=== PATIENT | male | born 1945 | race Hispanic/Latino ===

== ENCOUNTER 2021-01-20 09:00 | Observation (INO) | payer OTHER ==
[~2021-01-20] VITALS: Ht 175.3 cm; Wt 74.8 kg
[2021-01-20 10:49] LABS: BASOPHILS % (AUTO) 0.9 % (0.0-5.0); EOSINOPHILS % (AUTO) 12.7 % (0.0-8.0); HEMATOCRIT 38.7 % (42-54); LYMPHOCYTES % (AUTO) 14.9 % (21.0-51.0); MEAN CORPUSCULAR HEMOGLOBIN 28.1 pg (27.0-33.0); MEAN CORPUSCULAR HGB CONC 30.7 g/dL (32.0-36.0); MEAN CORPUSCULAR VOLUME 91.3 fL (79-99); MONOCYTES % (AUTO) 8.1 % (3.0-13.0); PLATELET COUNT (AUTO) 232 K/uL (130-400); RED BLOOD CELL COUNT(AUTO) 4.24 MIL/uL (4.50-6.20); RED CELL DISTRIBUTION WIDTH 13.5 % (11.0-15.5); WHITE BLOOD COUNT (AUTO) 8.4 K/uL (4.8-10.8)
[2021-01-20 10:57] LABS: CREATININE 0.7 mg/dL (0.5-1.5)
[2021-01-20 10:59] LABS: INR 1.05 (0.85-1.15); PROTHROMBIN TIME 11.4 SEC (9.6-11.6)
[2021-01-24 11:33] VITALS: BP 131/74
[2021-01-24] MEDS ORDERED: ESCI-8 PO (12:35)
[2021-01-24] MEDS ORDERED: OMEP40CA13 PO (12:35)
[2021-01-24] MEDS ORDERED: CYCL10TA7 PO (12:35)
[2021-01-24] MEDS ORDERED: BENZ-70 PO (12:35)
[2021-01-24] MEDS ORDERED: FLUT1AER IH (12:35)
[2021-01-24] MEDS ORDERED: FLUT16H NASAL (12:35)
[2021-01-24] MEDS ORDERED: ASPI-1197 PO (12:35)
[2021-01-24] MEDS ORDERED: FURO20TA4 PO (12:35)
[2021-01-24] MEDS ORDERED: CETI10TA57 PO (12:35)
[2021-01-24] MEDS ORDERED: SULF500T8 PO (12:35)
[2021-01-24] MEDS ORDERED: METO-408 PO (12:35)
[2021-01-24] MEDS ORDERED: MONT10TA32 PO (12:35)
[2021-01-24] MEDS ORDERED: TRAM50TA4 PO (12:35)
[2021-01-24] MEDS ORDERED: ALBU2.5V2 IH (12:35)
[2021-01-25] VITALS (22 sets, daily range): BP systolic 96–138; BP diastolic 48–77
[2021-01-25] MEDS: CLINDAMYCIN 900 MG/D5% WATER 50 ML IV SCH ×2 (06:00→13:05)
[2021-01-25] MEDS ORDERED: LACTATED RINGERS 1000ML 1,000 ML IV ONE (09:04)
[2021-01-25] MEDS: VANCOMYCIN 1.5 GM in SODIUM CHLORIDE 0.9% 250 ML IV SCH ×2 (09:15→12:10)
[2021-01-25] MEDS ORDERED: CELECOXIB 200 MG CAP ONE (11:11)
[2021-01-25] MEDS ORDERED: KETOROLAC 15MG/ML VIAL (15MG/ML) ONE (11:11)
[2021-01-25] MEDS ORDERED: ACETAMINOPHEN 500 MG TABLET ONE (11:11)
[2021-01-25] MEDS ORDERED: ROCURONIUM 10MG/1ML SYR 10 MG/ML ML ONE (12:13)
[2021-01-25] MEDS ORDERED: LIDOCAINE PF 100MG/5ML (2%) SYRINGE 5ML ONE (12:13)
[2021-01-25] MEDS ORDERED: PROPOFOL 10 MG/ML 20ML VIAL IV ONE (12:13)
[2021-01-25] MEDS ORDERED: SUCCINYLCHOLINE CHLORIDE 20 MG/ML 10 ML VIAL ONE (12:13)
[2021-01-25] MEDS ORDERED: KETAMINE 50MG/ML SYRINGE 50 MG/ML DISP.SYRIN IV ONE (12:14)
[2021-01-25] MEDS ORDERED: CEFAZOLIN SODIUM 1 GM VIAL ONE (12:17)
[2021-01-25] MEDS ORDERED: TRANEXAMIC ACID 1000MG/10ML ONE ×2 (12:28→15:55)
[2021-01-25] MEDS ORDERED: NEOSTIGMINE 5MG/5ML SYR IV ONE (15:07)
[2021-01-25] MEDS ORDERED: GLYCOPYRROLATE 1 MG/5 ML SYRINGE ONE (15:07)
[2021-01-25] MEDS ORDERED: ONDANSETRON HCL 4 MG/2 ML VIAL ONE (15:07)
[2021-01-25] MEDS ORDERED: POTASSIUM CHLORIDE 20 MEQ ERTAB PO PRN (15:15)
[2021-01-25] MEDS ORDERED: TEMAZEPAM 15 MG CAPSULE PO PRN (15:15)
[2021-01-25] MEDS ORDERED: POTASSIUM CHLORIDE 10% ELIXIR 20 MEQ/15 ML UDCUP PO PRN (15:15)
[2021-01-25] MEDS: SODIUM CHLORIDE 0.9% 1000ML 1,000 ML IV SCH ×2 (15:15→20:30)
[2021-01-25] MEDS ORDERED: FERROUS FUMARATE 324 MG TABLET PO PRN (15:15)
[2021-01-25] MEDS: ACETAMINOPHEN 500 MG TABLET PO SCH ×2 (15:15→20:30)
[2021-01-25] MEDS ORDERED: ONDANSETRON HCL 4 MG/2 ML VIAL IVP PRN (15:15)
[2021-01-25] MEDS ORDERED: OXYCODONE HCL 5 MG TAB PO PRN (15:15)
[2021-01-25] MEDS ORDERED: LIDOCAINE HCL-MPF 1% 2ML VIAL IV PRN (15:15)
[2021-01-25] MEDS ORDERED: POTASSIUM CHLORIDE 20MEQ/100ML 100 ML IV PRN (15:15)
[2021-01-25] MEDS ORDERED: KETOROLAC 15MG/ML VIAL (15MG/ML) IV PRN (15:15)
[2021-01-25] MEDS ORDERED: DiphenhydrAMINE HCL 50 MG/ML VIAL IVP PRN (15:15)
[2021-01-25] MEDS ORDERED: TRAMADOL HCL 50 MG TABLET PO PRN ×3 (15:15→21:15)
[2021-01-25] MEDS ORDERED: MEPERIDINE-PF 25 MG/ML SYG ONE (16:04)
[2021-01-25] MEDS ORDERED: SCOPOLAMINE HYDROBROMIDE 1 EACH ADH..PATCH TD ONE (16:15)
[2021-01-25] MEDS: CLINDAMYCIN 900 MG/D5% WATER 50 ML IVPB SCH (20:28)
[2021-01-25] MEDS: ASPIRIN 81MG TAB.CHEW PO SCH (20:29)
[2021-01-25] MEDS: VANCOMYCIN 1GM+NS 250ML 250 ML IV SCH (20:29)
[2021-01-25] MEDS: PREGABALIN 25 MG CAP PO SCH (20:30)
[2021-01-25] MEDS: CELECOXIB 200 MG CAP PO SCH (20:30)
[2021-01-25] MEDS: MONTELUKAST SODIUM 10 MG TAB PO SCH (20:40)
[2021-01-25] MEDS: CETIRIZINE HCL 5 MG TABLET PO SCH (20:40)
[2021-01-25] MEDS: CYCLOBENZAPRINE HCL 10 MG TABLET PO SCH (20:41)
[2021-01-25] MEDS: OXYCODONE HCL 5 MG TAB PO PRN (20:41)
[2021-01-25] MEDS: BENZONATATE 100 MG CAPSULE PO SCH (20:41)
[2021-01-25] MEDS: CITALOPRAM 20 MG TABLET PO SCH (20:42)
[2021-01-25] MEDS: FUROSEMIDE 20 MG TABLET PO SCH (21:00)
[2021-01-25] MEDS: ALBUTEROL SULFATE 0.083% 2.5 MG/3 ML INH IH SCH (21:11)
[2021-01-26 03:36] LABS: HEMATOCRIT 26.8 % (42-54); MEAN CORPUSCULAR HEMOGLOBIN 28.7 pg (27.0-33.0); MEAN CORPUSCULAR HGB CONC 31.7 g/dL (32.0-36.0); MEAN CORPUSCULAR VOLUME 90.5 fL (79-99); RED BLOOD CELL COUNT(AUTO) 2.96 MIL/uL (4.50-6.20); RED CELL DISTRIBUTION WIDTH 13.4 % (11.0-15.5); WHITE BLOOD COUNT (AUTO) 8.6 K/uL (4.8-10.8)
[2021-01-26 03:45] LABS: CREATININE 0.8 mg/dL (0.5-1.5); POTASSIUM 4.3 mmol/L (3.5-5.1)
[2021-01-26] MEDS: CLINDAMYCIN 900 MG/D5% WATER 50 ML IVPB SCH (03:52)
[2021-01-26] MEDS: OXYCODONE HCL 5 MG TAB PO PRN ×2 (04:00→20:17)
[2021-01-26 04:11] VITALS: BP 103/61
[2021-01-26] MEDS: ACETAMINOPHEN 500 MG TABLET PO SCH ×3 (06:06→23:24)
[2021-01-26] MEDS: ALBUTEROL SULFATE 0.083% 2.5 MG/3 ML INH IH SCH ×3 (06:18→21:25)
[2021-01-26] MEDS: ASPIRIN 81MG TAB.CHEW PO SCH ×3 (07:43→20:16)
[2021-01-26] MEDS: FUROSEMIDE 20 MG TABLET PO SCH ×2 (08:05→16:25)
[2021-01-26] MEDS: BENZONATATE 100 MG CAPSULE PO SCH ×3 (08:05→20:17)
[2021-01-26] MEDS: VANCOMYCIN 1GM+NS 250ML 250 ML IV SCH (08:05)
[2021-01-26] MEDS: CALCIUM CARBONATE 500 MG TABLET PO PRN ×2 (08:05→20:16)
[2021-01-26] MEDS: POLYETHYLENE GLYCOL 3350 17 GM POWD.PACK PO SCH (08:05)
[2021-01-26] MEDS: CELECOXIB 200 MG CAP PO SCH ×2 (08:05→20:16)
[2021-01-26] MEDS: SULFASALAZINE 500 MG TAB.DR PO SCH ×2 (08:05→20:17)
[2021-01-26] MEDS: PREGABALIN 25 MG CAP PO SCH ×2 (08:06→20:16)
[2021-01-26] MEDS: TAMSULOSIN HCL 0.4 MG CAP.ER.24H PO SCH (08:06)
[2021-01-26] MEDS: PANTOPRAZOLE SODIUM 40 MG TABLET.DR PO SCH (08:06)
[2021-01-26] MEDS: FLUTICASONE/VILANTEROL 1 EACH AER.POW.BA IH SCH (08:31)
[2021-01-26] MEDS: FLUTICASONE PROPIONATE 50MCG/SPRAY 16 GM BOTTLE EN SCH (08:31)
[2021-01-26] MEDS: METOPROLOL SUCCINATE 12.5 MG PO SCH (08:31)
[2021-01-26] MEDS: CYCLOBENZAPRINE HCL 10 MG TABLET PO SCH ×2 (08:31→20:17)
[2021-01-26 08:41] VITALS: BP 112/62
[2021-01-26] MEDS: SODIUM CHLORIDE 0.9% 1000ML 1,000 ML IV SCH (11:15)
[2021-01-26 11:26] VITALS: BP 107/53
[2021-01-26 16:27] VITALS: BP 105/60
[2021-01-26 19:51] VITALS: BP 108/59
[2021-01-26] MEDS: CETIRIZINE HCL 5 MG TABLET PO SCH (20:17)
[2021-01-26] MEDS: MONTELUKAST SODIUM 10 MG TAB PO SCH (20:17)
[2021-01-26] MEDS: CITALOPRAM 20 MG TABLET PO SCH (20:17)
[2021-01-26 23:38] VITALS: BP 104/50
[2021-01-27 04:36] VITALS: BP 105/53
[2021-01-27] MEDS: ACETAMINOPHEN 500 MG TABLET PO SCH ×2 (06:03→17:52)
[2021-01-27] MEDS: ALBUTEROL SULFATE 0.083% 2.5 MG/3 ML INH IH SCH ×3 (06:24→19:54)
[2021-01-27 08:00] VITALS: BP 110/82
[2021-01-27] MEDS: OXYCODONE HCL 5 MG TAB PO PRN ×2 (08:04→12:18)
[2021-01-27] MEDS: ASPIRIN 81MG TAB.CHEW PO SCH ×3 (09:00→19:53)
[2021-01-27] MEDS: METOPROLOL SUCCINATE 12.5 MG PO SCH (09:00)
[2021-01-27] MEDS: FLUTICASONE PROPIONATE 50MCG/SPRAY 16 GM BOTTLE EN SCH (09:00)
[2021-01-27] MEDS: FLUTICASONE/VILANTEROL 1 EACH AER.POW.BA IH SCH (09:00)
[2021-01-27] MEDS: TAMSULOSIN HCL 0.4 MG CAP.ER.24H PO SCH (10:13)
[2021-01-27] MEDS: POLYETHYLENE GLYCOL 3350 17 GM POWD.PACK PO SCH (10:13)
[2021-01-27] MEDS: PREGABALIN 25 MG CAP PO SCH ×2 (10:13→19:53)
[2021-01-27] MEDS: BENZONATATE 100 MG CAPSULE PO SCH ×3 (10:13→19:54)
[2021-01-27] MEDS: SULFASALAZINE 500 MG TAB.DR PO SCH ×2 (10:13→19:53)
[2021-01-27] MEDS: CYCLOBENZAPRINE HCL 10 MG TABLET PO SCH ×2 (10:13→19:53)
[2021-01-27] MEDS: PANTOPRAZOLE SODIUM 40 MG TABLET.DR PO SCH (10:13)
[2021-01-27] MEDS: CELECOXIB 200 MG CAP PO SCH ×2 (10:14→19:53)
[2021-01-27] MEDS: FUROSEMIDE 20 MG TABLET PO SCH ×2 (10:14→17:51)
[2021-01-27 11:51] VITALS: BP 119/67
[2021-01-27 16:00] VITALS: BP 124/62
[2021-01-27] MEDS ORDERED: ASPI-1005 PO (17:26)
[2021-01-27] MEDS ORDERED: FERR324T10 PO (17:26)
[2021-01-27] MEDS ORDERED: HYDR-4060 PO (17:26)
[2021-01-27] MEDS: MONTELUKAST SODIUM 10 MG TAB PO SCH (19:53)
[2021-01-27] MEDS: CITALOPRAM 20 MG TABLET PO SCH (19:53)
[2021-01-27] MEDS: CETIRIZINE HCL 5 MG TABLET PO SCH (19:53)
[2021-01-28] MEDS ORDERED: BISACODYL 10 MG SUPP.RECT RC PRN (15:15)
== END 2021-01-27 20:13 | disposition home or self-care (01) ==
LOC: EDSTATUS 09:00 → EDSEX 09:00 → DAHIP 01-25 08:23 → 4AH 01-25 17:27
PROVIDERS: ADMIT Orthopaedic Surgery; ATTEND Orthopaedic Surgery
DX: M17.12 Unilateral primary osteoarthritis, left knee (principal); Z20.822 Contact with and (suspected) exposure to COVID-19; M24.562 Contracture, left knee; D62 Acute posthemorrhagic anemia; E78.5 Hyperlipidemia, unspecified; M06.9 Rheumatoid arthritis, unspecified; Z99.3 Dependence on wheelchair; Z79.899 Other long term (current) drug therapy; Z88.0 Allergy status to penicillin
CPT/HCPCS: 27447; 36415 ×2; 80048 ×2; 82948; 85025; 85027; 85610; 87641; 88305; 88311; 93005; 94640 ×5; 94664; 96365; 96366 ×2; 96368; 96375; 97039 ×4; 97116 ×4; 97161; 97530 ×4; A4215; A4221; A4222; A4223; A4600; A4649 ×4; A4663; A4930 ×2; A5120; A9272; C1776; G0378 ×51; G8978; G8979; G8980; G8981; G8982; G8983; J0330; J0690; J1885 ×2; J2001; J2175; J2405; J2704; J2710; J3370 ×3; J3490 ×8; J7050; J7120 ×2; U0003; 96374

== ENCOUNTER 2021-06-14 05:59 | Inpatient (IN) | payer OTHER ==
[2021-06-05 10:01] LABS: EOSINOPHILS % (AUTO) 10.3 % (0.0-8.0); LYMPHOCYTES % (AUTO) 15.5 % (21.0-51.0); MEAN CORPUSCULAR HEMOGLOBIN 27.3 pg (27.0-33.0); MEAN CORPUSCULAR VOLUME 90.9 fL (79-99); MONOCYTES % (AUTO) 8.8 % (3.0-13.0); PLATELET COUNT (AUTO) 216 K/uL (130-400); RED BLOOD CELL COUNT(AUTO) 4.29 MIL/uL (4.50-6.20); RED CELL DISTRIBUTION WIDTH 15.8 % (11.0-15.5); WHITE BLOOD COUNT (AUTO) 7.2 K/uL (4.8-10.8)
[2021-06-05 10:09] LABS: CREATININE 0.8 mg/dL (0.5-1.5); POTASSIUM 4.1 mmol/L (3.5-5.1)
[2021-06-05 10:12] LABS: APPEARANCE,URINE Clear (CLEAR); BILIRUBIN,URINE Negative (NEGATIVE); COLOR,URINE Yellow (YELLOW); GLUCOSE, URINE (UA) Negative (NEGATIVE); KETONES,URINE Negative (NEGATIVE); LEUKOCYTE ESTERASE ,URINE Trace (NEGATIVE); NITRATE,URINE Negative (NEGATIVE); OCCULT BLOOD,URINE Negative (NEGATIVE); PH,URINE 5.5 (5.0-8.0); PROTEIN,URINE Negative (NEGATIVE)
[2021-06-05 10:15] LABS: INR 1.06 (0.85-1.15); PROTHROMBIN TIME 11.5 SEC (9.6-11.6)
[2021-06-05 10:27] LABS: BACTERIA,URINE Rare /HPF (None Seen); RBC,URINE 0-1 /HPF (0-1); SQUAMOUS EPITHELIAL CELL,UR Few /HPF (0-2); WBC,URINE 0-1 /HPF (0-1)
[2021-06-06 11:24] VITALS: BP 113/74
[2021-06-14] VITALS (21 sets, daily range): BP systolic 100–141; BP diastolic 67–94
[~2021-06-14] VITALS: Ht 157.5 cm; Wt 81.1 kg
[~2021-06-14 05:59] MED LIST: ACET1TAB25 PO; AEC81 PO; ALBU1.252 IH; ALBUHFA IH; CEFAZOLIN SODIUM 1 GM VIAL IVP ONE; CETI10TA57 PO; CYCL10TA7 PO; ESCI-8 PO; FLUT16H NASAL; FLUT1AER IH; FURO40TA5 PO; IRON1TAB31 PO; MELO7.5T12 PO; METO-408 PO; MONT10TA32 PO; MULT-1296 PO; PANT40TA54 PO; SULFAD500 PO; VITAMIN C PO
[2021-06-14] MEDS ORDERED: LACTATED RINGERS 1000ML 1,000 ML IV ONE (08:27)
[2021-06-14] MEDS: CLINDAMYCIN IVPB 900MG/50ML 50 ML IV SCH ×3 (08:30→18:25)
[2021-06-14] MEDS ORDERED: VANCOMYCIN 1G VIAL ONE (09:22)
[2021-06-14] MEDS ORDERED: 0.9% NACL 250ML 250 ML IV SCH (09:30)
[2021-06-14] MEDS: VANCOMYCIN KIT 1 GM/250 ML IV.KIT IV SCH ×2 (09:30→10:40)
[2021-06-14] MEDS ORDERED: TRANEXAMIC ACID 1000MG/10ML ONE ×2 (09:33→15:23)
[2021-06-14] MEDS ORDERED: SUCCINYLCHOLINE CHLORIDE 20 MG/ML 10 ML VIAL ONE (10:45)
[2021-06-14] MEDS ORDERED: PROPOFOL 10 MG/ML 20ML VIAL IV ONE ×2 (10:46→13:35)
[2021-06-14] MEDS ORDERED: ROCURONIUM 10MG/1ML SYR 10 MG/ML ML ONE (10:46)
[2021-06-14] MEDS ORDERED: FENTANYL CITRATE PF 50 MCG/1 ML 2ML VIAL ONE (10:46)
[2021-06-14] MEDS ORDERED: MIDAZOLAM HCL 1 MG/ML 2ML VIAL ONE ×2 (10:46→11:50)
[2021-06-14] MEDS ORDERED: NEOSTIGMINE 5MG/5ML SYR IV ONE (10:46)
[2021-06-14] MEDS ORDERED: LIDOCAINE PF 100MG/5ML (2%) SYRINGE 5ML ONE (10:46)
[2021-06-14] MEDS ORDERED: GLYCOPYRROLATE 1 MG/5 ML SYRINGE ONE (10:46)
[2021-06-14] MEDS ORDERED: MEPERIDINE-PF 25 MG/ML SYG ONE ×2 (11:02→11:25)
[2021-06-14] MEDS ORDERED: ONDANSETRON 4MG INJ IVP PRN (14:00)
[2021-06-14] MEDS ORDERED: POTASSIUM CHLORIDE 20MEQ/100ML 100 ML IV PRN (14:00)
[2021-06-14] MEDS ORDERED: LIDOCAINE HCL-MPF 1% 2ML VIAL IV PRN (14:00)
[2021-06-14] MEDS ORDERED: POTASSIUM CHLORIDE 10% ELIXIR 20 MEQ/15 ML UDCUP PO PRN (14:00)
[2021-06-14] MEDS ORDERED: DiphenhydrAMINE HCL 50 MG/ML VIAL IVP PRN (14:00)
[2021-06-14] MEDS ORDERED: CALCIUM CARB 500MG PO PRN (14:00)
[2021-06-14] MEDS: ACETAMINOPHEN 500 MG TABLET PO SCH ×2 (14:00→21:33)
[2021-06-14] MEDS ORDERED: KETOROLAC 15MG/ML VIAL (15MG/ML) IV PRN (14:00)
[2021-06-14] MEDS ORDERED: TRAMADOL HCL 50 MG TABLET PO PRN (14:00)
[2021-06-14] MEDS ORDERED: KCL 20 MEQ ERTAB PO PRN (14:00)
[2021-06-14] MEDS: 0.9%NACL 1000ML 1,000 ML IV SCH (14:00)
[2021-06-14] MEDS ORDERED: ROPIVACAINE 0.5% 5MG/ML 30ML IJ ONE (14:24)
[2021-06-14] MEDS ORDERED: VANCOMYCIN 1G 1.25 GM in 0.9% NACL 250ML 250 ML IVPB SCH (15:00)
[2021-06-14] MEDS: OXYCODONE HCL 5 MG TAB PO PRN ×2 (16:23→21:31)
[2021-06-14] MEDS: FAMOTIDINE 20MG TAB PO SCH (21:31)
[2021-06-14] MEDS: PREGABALIN 25 MG CAP PO SCH (21:31)
[2021-06-14] MEDS: CELECOXIB 200 MG CAP PO SCH (21:31)
[2021-06-14] MEDS: ASPIRIN 81MG CHEW TAB PO SCH (21:32)
[2021-06-15] VITALS: BP 152/87
[2021-06-15] MEDS: CLINDAMYCIN IVPB 900MG/50ML 50 ML IV SCH (03:00)
[2021-06-15 04:00] VITALS: BP 125/74
[2021-06-15 04:35] LABS: HEMATOCRIT 29.3 % (42-54); MEAN CORPUSCULAR HGB CONC 31.1 g/dL (32.0-36.0); MEAN CORPUSCULAR VOLUME 90.2 fL (79-99); RED BLOOD CELL COUNT(AUTO) 3.25 MIL/uL (4.50-6.20); RED CELL DISTRIBUTION WIDTH 15.4 % (11.0-15.5)
[2021-06-15 04:55] LABS: CREATININE 0.6 mg/dL (0.5-1.5); POTASSIUM 4.1 mmol/L (3.5-5.1)
[2021-06-15] MEDS: ACETAMINOPHEN 500 MG TABLET PO SCH ×3 (06:42→21:28)
[2021-06-15 07:17] VITALS: BP 110/65
[2021-06-15] MEDS: ASPIRIN 81MG CHEW TAB PO SCH ×2 (09:47→21:29)
[2021-06-15] MEDS: PREGABALIN 25 MG CAP PO SCH ×2 (09:47→21:26)
[2021-06-15] MEDS: FERROUS FUMARATE 324 MG TABLET PO PRN (09:47)
[2021-06-15] MEDS: CELECOXIB 200 MG CAP PO SCH ×2 (09:47→21:26)
[2021-06-15] MEDS: POLYETHYLENE GLYCOL 3350 17 GM POWD.PACK PO SCH (09:47)
[2021-06-15] MEDS: FAMOTIDINE 20MG TAB PO SCH (09:48)
[2021-06-15] MEDS: OXYCODONE HCL 5 MG TAB PO PRN ×3 (09:48→16:25)
[2021-06-15] MEDS: 0.9%NACL 1000ML 1,000 ML IV SCH (09:53)
[2021-06-15 11:45] VITALS: BP 100/62
[2021-06-15 15:38] VITALS: BP 102/61
[2021-06-15 19:00] VITALS: BP 98/59
[2021-06-15] MEDS: CETIRIZINE HCL 5 MG TABLET PO SCH (21:27)
[2021-06-15] MEDS: FUROSEMIDE 40 MG TABLET PO SCH (21:27)
[2021-06-15] MEDS: MONTELUKAST SODIUM 10 MG TAB PO SCH (21:28)
[2021-06-15] MEDS: CYCLOBENZAPRINE HCL 10 MG TABLET PO SCH (21:29)
[2021-06-15] MEDS: PANTOPRAZOLE 40 MG TAB DR PO SCH (21:29)
[2021-06-16] VITALS (7 sets, daily range): BP systolic 98–127; BP diastolic 52–76
[2021-06-16 04:49] LABS: HEMATOCRIT 27.7 % (42-54); MEAN CORPUSCULAR HEMOGLOBIN 27.6 pg (27.0-33.0); MEAN CORPUSCULAR HGB CONC 30.7 g/dL (32.0-36.0); MEAN CORPUSCULAR VOLUME 89.9 fL (79-99); PLATELET COUNT (AUTO) 156 K/uL (130-400); RED BLOOD CELL COUNT(AUTO) 3.08 MIL/uL (4.50-6.20); RED CELL DISTRIBUTION WIDTH 15.8 % (11.0-15.5); WHITE BLOOD COUNT (AUTO) 11.7 K/uL (4.8-10.8)
[2021-06-16] MEDS: ACETAMINOPHEN 500 MG TABLET PO SCH ×3 (06:00→20:05)
[2021-06-16] MEDS: FLUTICASONE PROPIONATE 50MCG/SPRAY 16 GM BOTTLE NS SCH (09:00)
[2021-06-16] MEDS: BREO ELLIPTA 100-25 MCG INH IH SCH (09:00)
[2021-06-16] MEDS ORDERED: ASPIRIN 81 MG EC TAB PO SCH (09:00)
[2021-06-16] MEDS: CYCLOBENZAPRINE HCL 10 MG TABLET PO SCH ×2 (09:44→20:04)
[2021-06-16] MEDS: ASPIRIN 81MG CHEW TAB PO SCH ×2 (09:44→20:04)
[2021-06-16] MEDS: CELECOXIB 200 MG CAP PO SCH ×2 (09:44→20:04)
[2021-06-16] MEDS: OXYCODONE HCL 5 MG TAB PO PRN (09:45)
[2021-06-16] MEDS: PANTOPRAZOLE 40 MG TAB DR PO SCH ×2 (09:45→20:05)
[2021-06-16] MEDS: POLYETHYLENE GLYCOL 3350 17 GM POWD.PACK PO SCH (09:45)
[2021-06-16] MEDS: METOPROLOL SUCCINATE 50 MG TAB.SR.24H PO SCH (09:45)
[2021-06-16] MEDS: FERROUS FUMARATE 324 MG TABLET PO PRN ×2 (09:45→20:04)
[2021-06-16] MEDS: PREGABALIN 25 MG CAP PO SCH ×2 (09:45→20:04)
[2021-06-16] MEDS: FUROSEMIDE 40 MG TABLET PO SCH ×2 (09:45→20:11)
[2021-06-16] MEDS: CETIRIZINE HCL 5 MG TABLET PO SCH (20:03)
[2021-06-16] MEDS: MONTELUKAST SODIUM 10 MG TAB PO SCH (20:04)
[2021-06-17 04:02] VITALS: BP 107/54
[2021-06-17] MEDS: ACETAMINOPHEN 500 MG TABLET PO SCH ×3 (04:38→21:42)
[2021-06-17 08:00] VITALS: BP 127/73
[2021-06-17] MEDS: BREO ELLIPTA 100-25 MCG INH IH SCH (09:00)
[2021-06-17] MEDS: FLUTICASONE PROPIONATE 50MCG/SPRAY 16 GM BOTTLE NS SCH (09:00)
[2021-06-17] MEDS: CELECOXIB 200 MG CAP PO SCH ×2 (09:14→21:41)
[2021-06-17] MEDS: POLYETHYLENE GLYCOL 3350 17 GM POWD.PACK PO SCH (09:14)
[2021-06-17] MEDS: CYCLOBENZAPRINE HCL 10 MG TABLET PO SCH ×2 (09:14→21:41)
[2021-06-17] MEDS: ASPIRIN 81MG CHEW TAB PO SCH ×2 (09:14→21:43)
[2021-06-17] MEDS: METOPROLOL SUCCINATE 50 MG TAB.SR.24H PO SCH (09:15)
[2021-06-17] MEDS: PREGABALIN 25 MG CAP PO SCH ×2 (09:15→21:41)
[2021-06-17] MEDS: FUROSEMIDE 40 MG TABLET PO SCH ×2 (09:15→21:41)
[2021-06-17] MEDS: PANTOPRAZOLE 40 MG TAB DR PO SCH ×2 (09:16→21:41)
[2021-06-17 11:47] VITALS: BP 133/75
[2021-06-17] MEDS ORDERED: BISACODYL 10 MG SUPP.RECT RC PRN (14:00)
[2021-06-17 16:00] VITALS: BP 122/75
[2021-06-17] MEDS ORDERED: ALBUTEROL 0.042% 1.25MG/3ML IH PRN (19:00)
[2021-06-17] MEDS ORDERED: ALBUTEROL INHALER 90MCG/INH IH PRN (19:00)
[2021-06-17] MEDS ORDERED: IPRATROPIUM/ALBUTEROL SULFATE 3 ML SOLUTION IH ONE (19:00)
[2021-06-17 19:30] VITALS: BP 120/72
[2021-06-17 19:32] LABS: HEMATOCRIT 25.9 % (42-54); MEAN CORPUSCULAR HEMOGLOBIN 27.6 pg (27.0-33.0); MEAN CORPUSCULAR HGB CONC 30.9 g/dL (32.0-36.0); MEAN CORPUSCULAR VOLUME 89.3 fL (79-99); PLATELET COUNT (AUTO) 198 K/uL (130-400); WHITE BLOOD COUNT (AUTO) 9.6 K/uL (4.8-10.8)
[2021-06-17 19:51] LABS: ALBUMIN 2.7 g/dL (3.5-5.0); BILIRUBIN,TOTAL 0.6 mg/dL (0.2-1.0); CREATININE 0.9 mg/dL (0.5-1.5); MAGNESIUM 2.1 mg/dL (1.80-2.40); POTASSIUM 3.8 mmol/L (3.5-5.1); TOTAL PROTEIN, SERUM 6.3 g/dL (6.0-8.3)
[2021-06-17 19:53] LABS: INR 1.09 (0.85-1.15); PROTHROMBIN TIME 11.8 SEC (9.6-11.6)
[2021-06-17 19:54] LABS: PARTIAL THROMBOPLASTIN TIME 32.1 SEC (26.3-35.5)
[2021-06-17 20:10] LABS: BAND NEUTROPHILS % (MANUAL) 2 % (0-2); EOSINOPHILS % (MANUAL) 2 % (1-6); LYMPHOCYTES % (MANUAL) 11 % (22-44); MAN.DIFF COMMENT-IMPRESSION MANUAL DIFFERENTIAL; MONOCYTES % (MANUAL) 9 % (2-9); PLATELET MORPHOLOGY COMMENT PLT CLUMPS PRESENT; REACTIVE LYMPHOCYTES 1 % (0-0); SEGMENTED NEUTROPHILS % 75 % (40-70)
[2021-06-17 20:14] LABS: CRP QUANTITATIVE 292.4 mg/L (0.00-9.0)
[2021-06-17] MEDS: CETIRIZINE HCL 5 MG TABLET PO SCH (21:41)
[2021-06-17] MEDS: MONTELUKAST SODIUM 10 MG TAB PO SCH (21:41)
[2021-06-17] MEDS: GUAIFENESIN 600 MG TABLET.ER PO SCH (21:41)
[2021-06-17] MEDS ORDERED: IOHEXOL 350 MG/ML 100ML INFUS..BTL IV ONE (22:49)
[2021-06-17] MEDS: IPRATROPIUM/ALBUTEROL SULFATE 3 ML SOLUTION IH PRN (23:07)
[2021-06-18] VITALS (7 sets, daily range): BP systolic 119–147; BP diastolic 73–89
[2021-06-18] MEDS: FERROUS FUMARATE 324 MG TABLET PO PRN (05:01)
[2021-06-18] MEDS: ACETAMINOPHEN 500 MG TABLET PO SCH ×3 (05:01→20:38)
[2021-06-18] MEDS ORDERED: ALBUTEROL INHALER 90MCG/INH IH PRN (05:30)
[2021-06-18 05:46] LABS: BASOPHILS % (AUTO) 0.6 % (0.0-5.0); EOSINOPHILS % (AUTO) 4.4 % (0.0-8.0); HEMATOCRIT 28.2 % (42-54); LYMPHOCYTES % (AUTO) 8.9 % (21.0-51.0); MEAN CORPUSCULAR HEMOGLOBIN 27.6 pg (27.0-33.0); MEAN CORPUSCULAR HGB CONC 31.6 g/dL (32.0-36.0); MEAN CORPUSCULAR VOLUME 87.3 fL (79-99); MONOCYTES % (AUTO) 10.4 % (3.0-13.0); NEUTROPHILS % (AUTO) 75.2 % (40.0-77.0); PLATELET COUNT (AUTO) 197 K/uL (130-400); RED BLOOD CELL COUNT(AUTO) 3.23 MIL/uL (4.50-6.20); RED CELL DISTRIBUTION WIDTH 16.1 % (11.0-15.5); WHITE BLOOD COUNT (AUTO) 8.5 K/uL (4.8-10.8)
[2021-06-18] MEDS: IPRATROPIUM/ALBUTEROL SULFATE 3 ML SOLUTION IH PRN ×2 (06:44→13:30)
[2021-06-18] MEDS: FLUTICASONE PROPIONATE 50MCG/SPRAY 16 GM BOTTLE NS SCH (09:00)
[2021-06-18] MEDS: SULFADIAZINE 500 MG PO SCH ×2 (09:00→20:39)
[2021-06-18] MEDS: BREO ELLIPTA 100-25 MCG INH IH SCH (09:00)
[2021-06-18] MEDS: ASCORBIC ACID 500 MG TAB PO SCH (10:14)
[2021-06-18] MEDS: ASPIRIN 81MG CHEW TAB PO SCH ×2 (10:14→20:38)
[2021-06-18] MEDS: METOPROLOL SUCCINATE 50 MG TAB.SR.24H PO SCH (10:14)
[2021-06-18] MEDS: GUAIFENESIN 600 MG TABLET.ER PO SCH ×2 (10:15→20:37)
[2021-06-18] MEDS: CELECOXIB 200 MG CAP PO SCH ×2 (10:15→20:39)
[2021-06-18] MEDS: PREGABALIN 25 MG CAP PO SCH (10:15)
[2021-06-18] MEDS: CYCLOBENZAPRINE HCL 10 MG TABLET PO SCH ×2 (10:15→20:38)
[2021-06-18] MEDS: FUROSEMIDE 40 MG TABLET PO SCH ×2 (10:15→20:39)
[2021-06-18] MEDS: PANTOPRAZOLE 40 MG TAB DR PO SCH ×2 (10:15→20:37)
[2021-06-18] MEDS: POLYETHYLENE GLYCOL 3350 17 GM POWD.PACK PO SCH (10:15)
[2021-06-18] MEDS ORDERED: LEVOFLOXACIN 500 MG/D5W 100 ML 100 ML IV SCH (13:30)
[2021-06-18] MEDS ORDERED: DiphenhydrAMINE HCL 50 MG/ML VIAL IV PRN (15:30)
[2021-06-18] MEDS: CLINDAMYCIN IVPB 600MG/50ML 50 ML IV SCH ×2 (16:15→20:38)
[2021-06-18] MEDS: MONTELUKAST SODIUM 10 MG TAB PO SCH (20:37)
[2021-06-18] MEDS: CETIRIZINE HCL 5 MG TABLET PO SCH (20:37)
[2021-06-18] MEDS: TEMAZEPAM 15 MG CAPSULE PO PRN (20:38)
[2021-06-19] MEDS: IPRATROPIUM/ALBUTEROL SULFATE 3 ML SOLUTION IH PRN ×4 (01:38→18:45)
[2021-06-19 04:13] VITALS: BP 126/68
[2021-06-19] MEDS: CLINDAMYCIN IVPB 600MG/50ML 50 ML IV SCH ×2 (05:00→16:04)
[2021-06-19] MEDS: ACETAMINOPHEN 500 MG TABLET PO SCH ×3 (05:01→23:09)
[2021-06-19 05:08] LABS: BASOPHILS % (AUTO) 0.5 % (0.0-5.0); HEMATOCRIT 28.6 % (42-54); LYMPHOCYTES % (AUTO) 14.4 % (21.0-51.0); MEAN CORPUSCULAR HEMOGLOBIN 27.7 pg (27.0-33.0); MEAN CORPUSCULAR HGB CONC 30.4 g/dL (32.0-36.0); MEAN CORPUSCULAR VOLUME 91.1 fL (79-99); MONOCYTES % (AUTO) 16.1 % (3.0-13.0); NEUTROPHILS % (AUTO) 60.6 % (40.0-77.0); PLATELET COUNT (AUTO) 201 K/uL (130-400); RED BLOOD CELL COUNT(AUTO) 3.14 MIL/uL (4.50-6.20); RED CELL DISTRIBUTION WIDTH 16.2 % (11.0-15.5); WHITE BLOOD COUNT (AUTO) 7.7 K/uL (4.8-10.8)
[2021-06-19 05:35] LABS: ALBUMIN 2.7 g/dL (3.5-5.0); BILIRUBIN,TOTAL 0.9 mg/dL (0.2-1.0); CREATININE 0.8 mg/dL (0.5-1.5); POTASSIUM 3.9 mmol/L (3.5-5.1); TOTAL PROTEIN, SERUM 6.3 g/dL (6.0-8.3)
[2021-06-19 07:30] VITALS: BP 113/67
[2021-06-19] MEDS: GUAIFENESIN 600 MG TABLET.ER PO SCH ×2 (08:42→23:04)
[2021-06-19] MEDS: ASCORBIC ACID 500 MG TAB PO SCH (08:42)
[2021-06-19] MEDS: POLYETHYLENE GLYCOL 3350 17 GM POWD.PACK PO SCH (08:42)
[2021-06-19] MEDS: CYCLOBENZAPRINE HCL 10 MG TABLET PO SCH ×2 (08:42→23:04)
[2021-06-19] MEDS: CELECOXIB 200 MG CAP PO SCH ×2 (08:42→23:03)
[2021-06-19] MEDS: PANTOPRAZOLE 40 MG TAB DR PO SCH ×2 (08:43→23:04)
[2021-06-19] MEDS: FUROSEMIDE 40 MG TABLET PO SCH ×2 (08:43→23:04)
[2021-06-19] MEDS: ASPIRIN 81MG CHEW TAB PO SCH ×2 (08:43→23:04)
[2021-06-19] MEDS: FERROUS FUMARATE 324 MG TABLET PO PRN (08:44)
[2021-06-19] MEDS: METOPROLOL SUCCINATE 50 MG TAB.SR.24H PO SCH (08:44)
[2021-06-19] MEDS: SULFADIAZINE 500 MG PO SCH ×2 (09:00→21:00)
[2021-06-19] MEDS: BREO ELLIPTA 100-25 MCG INH IH SCH (09:00)
[2021-06-19] MEDS: FLUTICASONE PROPIONATE 50MCG/SPRAY 16 GM BOTTLE NS SCH (09:00)
[2021-06-19 11:00] VITALS: BP 103/68
[2021-06-19 16:00] VITALS: BP 114/70
[2021-06-19 20:09] VITALS: BP 129/81
[2021-06-19] MEDS: MEROPENEM 1 GM VIAL IVP SCH (23:03)
[2021-06-19] MEDS: MONTELUKAST SODIUM 10 MG TAB PO SCH (23:04)
[2021-06-19] MEDS: CETIRIZINE HCL 5 MG TABLET PO SCH (23:05)
[2021-06-19] MEDS: TEMAZEPAM 15 MG CAPSULE PO PRN (23:09)
[2021-06-19 23:41] VITALS: BP 129/83
[2021-06-20] MEDS: IPRATROPIUM/ALBUTEROL SULFATE 3 ML SOLUTION IH SCH ×4 (00:13→18:20)
[2021-06-20 04:03] VITALS: BP 124/77
[2021-06-20] MEDS: MEROPENEM 1 GM VIAL IVP SCH ×2 (04:41→13:03)
[2021-06-20 05:10] LABS: BASOPHILS % (AUTO) 0.4 % (0.0-5.0); EOSINOPHILS % (AUTO) 11.6 % (0.0-8.0); HEMATOCRIT 27.3 % (42-54); LYMPHOCYTES % (AUTO) 12.5 % (21.0-51.0); MEAN CORPUSCULAR HEMOGLOBIN 27.7 pg (27.0-33.0); MEAN CORPUSCULAR HGB CONC 31.1 g/dL (32.0-36.0); MEAN CORPUSCULAR VOLUME 88.9 fL (79-99); MONOCYTES % (AUTO) 13.6 % (3.0-13.0); NEUTROPHILS % (AUTO) 61.3 % (40.0-77.0); PLATELET COUNT (AUTO) 221 K/uL (130-400); RED BLOOD CELL COUNT(AUTO) 3.07 MIL/uL (4.50-6.20); RED CELL DISTRIBUTION WIDTH 16.1 % (11.0-15.5); WHITE BLOOD COUNT (AUTO) 7.7 K/uL (4.8-10.8)
[2021-06-20 05:42] LABS: ALBUMIN 2.6 g/dL (3.5-5.0); BILIRUBIN,TOTAL 0.8 mg/dL (0.2-1.0); CREATININE 0.8 mg/dL (0.5-1.5); POTASSIUM 3.6 mmol/L (3.5-5.1); TOTAL PROTEIN, SERUM 6.1 g/dL (6.0-8.3)
[2021-06-20] MEDS: ACETAMINOPHEN 500 MG TABLET PO SCH ×3 (06:39→21:19)
[2021-06-20 07:30] VITALS: BP 129/74
[2021-06-20 07:53] LABS: ABG BASE EXCESS 6.6 mmol/L (-2.0-3.0); ABG HCO3 32.7 mmol/L (21.0-28.0); ABG OXYGEN SATURATION 95.5 % (95.0-99.0); ABG PCO2 55 mmHg (35-48)
[2021-06-20] MEDS: BREO ELLIPTA 100-25 MCG INH IH SCH (09:00)
[2021-06-20] MEDS: SULFADIAZINE 500 MG PO SCH ×2 (09:00→21:00)
[2021-06-20] MEDS: FLUTICASONE PROPIONATE 50MCG/SPRAY 16 GM BOTTLE NS SCH (09:00)
[2021-06-20] MEDS: CELECOXIB 200 MG CAP PO SCH ×2 (09:50→21:18)
[2021-06-20] MEDS: GUAIFENESIN 600 MG TABLET.ER PO SCH ×2 (09:50→21:18)
[2021-06-20] MEDS: CYCLOBENZAPRINE HCL 10 MG TABLET PO SCH ×2 (09:50→21:18)
[2021-06-20] MEDS: FUROSEMIDE 40 MG TABLET PO SCH ×2 (09:50→21:19)
[2021-06-20] MEDS: ASPIRIN 81MG CHEW TAB PO SCH ×2 (09:50→21:18)
[2021-06-20] MEDS: PANTOPRAZOLE 40 MG TAB DR PO SCH ×2 (09:50→21:18)
[2021-06-20] MEDS: POLYETHYLENE GLYCOL 3350 17 GM POWD.PACK PO SCH (09:50)
[2021-06-20] MEDS: ASCORBIC ACID 500 MG TAB PO SCH (09:51)
[2021-06-20] MEDS: METOPROLOL SUCCINATE 50 MG TAB.SR.24H PO SCH (09:51)
[2021-06-20 11:00] VITALS: BP 119/69
[2021-06-20] MEDS: LEVOFLOXACIN 500 MG/D5W 100 ML 100 ML IV SCH (14:22)
[2021-06-20 16:00] VITALS: BP 124/71
[2021-06-20] MEDS ORDERED: FERR324T10 PO (19:24)
[2021-06-20] MEDS ORDERED: HYDR-4060 PO (19:24)
[2021-06-20] MEDS ORDERED: AEC81 PO (19:24)
[2021-06-20] MEDS ORDERED: LEVO500T89 PO (19:44)
[2021-06-20 20:07] VITALS: BP 118/71
[2021-06-20] MEDS: MONTELUKAST SODIUM 10 MG TAB PO SCH (21:18)
[2021-06-20] MEDS: CETIRIZINE HCL 5 MG TABLET PO SCH (21:18)
[2021-06-20 23:44] VITALS: BP 117/69
[2021-06-21] MEDS: TEMAZEPAM 15 MG CAPSULE PO PRN (00:10)
[2021-06-21] MEDS: IPRATROPIUM/ALBUTEROL SULFATE 3 ML SOLUTION IH SCH ×3 (00:52→11:43)
[2021-06-21 04:07] VITALS: BP 140/72
[2021-06-21 04:57] LABS: BASOPHILS % (AUTO) 0.8 % (0.0-5.0); EOSINOPHILS % (AUTO) 12.7 % (0.0-8.0); HEMATOCRIT 28.9 % (42-54); LYMPHOCYTES % (AUTO) 11.2 % (21.0-51.0); MEAN CORPUSCULAR HEMOGLOBIN 27.6 pg (27.0-33.0); MEAN CORPUSCULAR HGB CONC 30.1 g/dL (32.0-36.0); MEAN CORPUSCULAR VOLUME 91.7 fL (79-99); NEUTROPHILS % (AUTO) 61.6 % (40.0-77.0); PLATELET COUNT (AUTO) 251 K/uL (130-400); RED BLOOD CELL COUNT(AUTO) 3.15 MIL/uL (4.50-6.20); WHITE BLOOD COUNT (AUTO) 8.9 K/uL (4.8-10.8)
[2021-06-21 05:17] LABS: ALBUMIN 2.6 g/dL (3.5-5.0); BILIRUBIN,TOTAL 0.8 mg/dL (0.2-1.0); CREATININE 0.7 mg/dL (0.5-1.5); POTASSIUM 3.8 mmol/L (3.5-5.1); TOTAL PROTEIN, SERUM 6.2 g/dL (6.0-8.3)
[2021-06-21] MEDS: ACETAMINOPHEN 500 MG TABLET PO SCH ×2 (05:22→13:29)
[2021-06-21] MEDS: SODIUM CHLORIDE 7% INHALATION 4 ML VIAL.NEB IH SCH ×2 (06:50→11:43)
[2021-06-21 07:30] VITALS: BP 138/69
[2021-06-21] MEDS: ASPIRIN 81MG CHEW TAB PO SCH (10:41)
[2021-06-21] MEDS: CELECOXIB 200 MG CAP PO SCH (10:41)
[2021-06-21] MEDS: CYCLOBENZAPRINE HCL 10 MG TABLET PO SCH (10:41)
[2021-06-21] MEDS: PANTOPRAZOLE 40 MG TAB DR PO SCH (10:41)
[2021-06-21] MEDS: LEVOFLOXACIN 500 MG/D5W 100 ML 100 ML IV SCH ×2 (10:41→12:15)
[2021-06-21] MEDS: POLYETHYLENE GLYCOL 3350 17 GM POWD.PACK PO SCH (10:41)
[2021-06-21] MEDS: GUAIFENESIN 600 MG TABLET.ER PO SCH (10:42)
[2021-06-21] MEDS: FUROSEMIDE 40 MG TABLET PO SCH (10:42)
[2021-06-21] MEDS: FERROUS FUMARATE 324 MG TABLET PO PRN (10:42)
[2021-06-21] MEDS: ASCORBIC ACID 500 MG TAB PO SCH (10:48)
[2021-06-21] MEDS: METOPROLOL SUCCINATE 50 MG TAB.SR.24H PO SCH (10:49)
[2021-06-21] MEDS: FLUTICASONE PROPIONATE 50MCG/SPRAY 16 GM BOTTLE NS SCH (10:51)
[2021-06-21] MEDS: BREO ELLIPTA 100-25 MCG INH IH SCH (10:59)
[2021-06-21] MEDS: SULFADIAZINE 500 MG PO SCH (10:59)
[2021-06-21 11:00] VITALS: BP 97/58
== END 2021-06-21 14:07 | DRG 469 ==
LOC: DAH 05:59 → UNDOADMOB 06:00 → DAHIP 06:00 → DAH 06:00 → DAHIP 06:02 → INTOOBSV 06:02 → OBSVTOIN 06:02 → UNDOADMOB 06:02 → DAHIP 16:01 → 3AH 16:01 → OBSVTOIN 06-16 16:08 → INTOOBSV 06-16 16:08
PROVIDERS: ADMIT Orthopaedic Surgery; ATTEND Orthopaedic Surgery
PROC: 0SRC0J9 Replacement of Right Knee Joint with Synthetic Substitute, Cemented, Open Approach (ICD-10-PCS; principal; 2021-06-14 10:44)
PROC: 30233N1 Transfusion of Nonautologous Red Blood Cells into Peripheral Vein, Percutaneous Approach (ICD-10-PCS; 2021-06-17)
PROC: 5A09357 Assistance with Respiratory Ventilation, Less than 24 Consecutive Hours, Continuous Positive Airway Pressure (ICD-10-PCS; 2021-06-20)
DX: M17.11 Unilateral primary osteoarthritis, right knee (principal); J18.9 Pneumonia, unspecified organism; J96.22 Acute and chronic respiratory failure with hypercapnia; D62 Acute posthemorrhagic anemia; J44.1 Chronic obstructive pulmonary disease with (acute) exacerbation; J44.0 Chronic obstructive pulmonary disease with (acute) lower respiratory infection; M06.9 Rheumatoid arthritis, unspecified; J98.4 Other disorders of lung; Z20.822 Contact with and (suspected) exposure to COVID-19; R00.0 Tachycardia, unspecified; I25.10 Atherosclerotic heart disease of native coronary artery without angina pectoris; E78.5 Hyperlipidemia, unspecified; G47.33 Obstructive sleep apnea (adult) (pediatric); I45.10 Unspecified right bundle-branch block; Z96.652 Presence of left artificial knee joint; Z88.0 Allergy status to penicillin; Z95.1 Presence of aortocoronary bypass graft; Z87.01 Personal history of pneumonia (recurrent); J47.9 Bronchiectasis, uncomplicated
CPT/HCPCS: 36415; 36600; 71045; 71275; 73562; 80048; 80053; 81001; 82435; 82550; 82803; 82947; 83605; 83735; 83874; 83880; 84132; 84145; 84295; 84484; 85014; 85018; 85025; 85027; 85378; 85610; 85730; 86140; 86850; 86900; 86901; 86923; 87040; 87071; 87077; 87088; 87186; 87205; 87486; 87581; 87633; 87635; 87641; 87798; 88305; 88311; 93005; 93970; 94640; 94660; 94664; 97039; C9803; G0378; J0330; J1885; J1956; J2001; J2175; J2185; J2250; J2704; J2710; J2795; J3010; J3370; J3490; J7030; J7050; J7120; P9016; Q9967